=== PATIENT | female | born 1945 | race Caucasian/White ===

== ENCOUNTER 2016-06-08 07:51 | Day surgery (SDC) | payer OTHER, MEDICARE ==
[~2016-06-08 07:51] MED LIST: ALBUTEROL2.5 MG/3 M IN; DIPHENHYDRAMINE25 M1 PO; ENDOCET1 TA3 PO; FENTANYL25 MCG/HR TOP; FLONASE AL50 MCG/ACT; MELOXICAM15 MG PO; MULTIVITAMIN1 TAB PO; NEURONTIN300 MG PO; QVAR80 MCG IN; TEMAZEPAM15 MG PO
--- NOTE | 2016-06-08 12:13 | Provider's Discharge Care Plan ---
Problem, Goal, Plan Problem List 1. Diverticulosis 2. Colon polyp
--- NOTE | 2016-06-08 12:13 | Provider's Discharge Care Plan ---
Problem, Goal, Plan Problem List 1. Diverticulosis 2. Colon polyp
--- NOTE | 2016-06-08 13:12 | OPERATIVE REPORT ---
DATE OF SURGERY: 06/08/2016 SURGEON: Davian Elder MD PREOPERATIVE DIAGNOSIS: 1. Colon cancer risk POSTOPERATIVE DIAGNOSES: 1. Colon polyp 2. Diverticulosis PROCEDURE PERFORMED: 1. Colonoscopy with forceps polypectomy ANESTHESIA: Total IV general. INDICATIONS: The patient is a 71-year-old woman undergoing screening colonoscopy. SURGICAL TECHNIQUE: The patient was taken to the endoscopy suite, where total IV general was administered and the patient was placed in the left lateral decubitus position. A well-lubricated colonoscope was advanced to the colon under direct vision. A few diverticula were seen in the sigmoid colon. At 100 cm, there was a sessile polyp about 3 mm in diameter, which was removed with the biopsy forceps and submitted for histopathology. The colonoscope was then passed to the cecum and there were no additional polyps seen during that or during withdrawal including a retroflexed view of the rectum. The patient left in good condition and no intraoperative complications were encountered.
== END 2016-06-08 13:22 | disposition home or self-care (01) ==
LOC: OR SRH 07:51 → SCU SRH 07:57
PROVIDERS: Surgery
PROC: 0DBL8ZX Excision of Transverse Colon, Via Natural or Artificial Opening Endoscopic, Diagnostic (ICD-10-PCS; principal; 2016-06-08 10:00)
DX: Z12.11 Encounter for screening for malignant neoplasm of colon (principal); D12.3 Benign neoplasm of transverse colon; K57.30 Diverticulosis of large intestine without perforation or abscess without bleeding; J45.909 Unspecified asthma, uncomplicated
CPT/HCPCS: 29229; 29240; 50004; 60001; 82944; 83526